=== PATIENT | male | born 1970 | race Caucasian/White ===

== ENCOUNTER 2021-02-04 21:43 | Inpatient (IN) | payer OTHER, MEDICAID, SELFPAY ==
[~2021-02-04] VITALS: Ht 180.3 cm; Wt 74.8 kg
[2021-02-04 22:07] VITALS: BP_SYST 100
--- NOTE | 2021-02-04 23:36 | NUR ---
Patient ambulatory to bed 6 for evauation
--- NOTE | 2021-02-05 | NUR ---
Patient stated that he hit his head on the bathroom tub and stated pain is 8/10.
--- NOTE | 2021-02-05 00:05 | NUR ---
MD sainz in to see patient
[2021-02-05 01:24] LABS: ANION GAP 10 (5-15); CALCIUM 9.5 mg/dL (8.4-11.0); CHLORIDE 101 mmol/L (98-107); GLUCOSE 101 mg/dL (70-99); POTASSIUM 3.7 mmol/L (3.5-5.1); SODIUM SERUM 136 mmol/L (136-145); UREA NITROGEN, BLOOD 10 mg/dL (8-21)
[2021-02-05 01:30] LABS: ALANINE AMINOTRANSFERASE 24 U/L (12-78); ALBUMIN 4.3 g/dL (3.4-4.8); ASPARTATE AMINOTRANSFERASE 16 U/L (10-37); TOTAL BILIRUBIN 0.5 mg/dL (0.0-1.0)
[2021-02-05 01:37] LABS: GFR AFRICAN AMERICAN 92 mL/min (>90)
[2021-02-05 01:38] LABS: ALCOHOL, BLOOD < 3 mg/dL (<10)
[2021-02-05 01:47] LABS: HEMATOCRIT 41.5 % (36-54); HEMOGLOBIN 13.8 g/dL (14.0-18.0); MEAN CORPUSCULAR HEMOGLOBIN 29 pg (27-31); MEAN CORPUSCULAR HGB CONC 33 % (32-36); MEAN CORPUSCULAR VOLUME 86 fL (79.0-98.0); PLATELET COUNT (AUTO) 251 K/uL (130-430); RED BLOOD CELL COUNT(AUTO) 4.82 MIL/uL (4.2-6.2); RED CELL DISTRIBUTION WIDTH 12.8 % (9.0-15.0)
[2021-02-05 01:48] LABS: LYMPHOCYTES % (AUTO) 36.2 % (20.5-51.5); NEUTROPHILS % (AUTO) 56.7 % (40.0-70.0)
[2021-02-05 04:26] LABS: BILIRUBIN,URINE NEGATIVE (NEGATIVE); BLOOD, URINE NEGATIVE (NEGATIVE); CLARITY/URINE CLEAR (CLEAR); GLUCOSE,URINE NEGATIVE (NEGATIVE); KETONES,URINE NEGATIVE (NEGATIVE); LEUKOCYTE ESTERASE ,URINE NEGATIVE (NEGATIVE); NITRITE, URINE NEGATIVE (NEGATIVE); PROTEIN URINE NEGATIVE (NEGATIVE); UROBILINOGEN,URINE 0.2 (0.2-1.0)
[2021-02-05 05:01] LABS: BARBITURATE, URINE NEGATIVE (NEG <=200); URINE AMPHETAMINE NEGATIVE (NEG <=500)
[2021-02-05 05:02] LABS: BENZODIAZEPINE, URINE NEGATIVE (NEG <=150); CANNABINOID, URINE POSITIVE (NEG <=50); COCAINE, URINE NEGATIVE (NEG <=150); METHAMPHETAMINES SCREEN,URINE NEGATIVE (NEG <=500); URINE METHADONE NEGATIVE (NEG <=200)
[2021-02-05 05:03] LABS: OPIATE, URINE POSITIVE (NEG <=100); PHENCYCLIDINE SCREEN,URINE NEGATIVE (NEG <=25); URINE OXYCODONE SCREEN POSITIVE (NEG <=100); URINE PROPOXYPHENE SCREEN NEGATIVE (NEG <=300)
[2021-02-05 05:04] LABS: UR TRICYCLIC ANTIDEPRESSANTS POSITIVE (NEG <=300)
[2021-02-05 05:16] LABS: COLOR,URINE YELLOW (YELLOW)
[2021-02-05] MEDS ORDERED: VORT20TA PO (05:50)
[2021-02-05] MEDS ORDERED: SOM350 PO (05:50)
[2021-02-05] MEDS ORDERED: LITH300C2 PO (05:50)
[2021-02-05] MEDS ORDERED: LAMO150T2 PO (05:50)
[2021-02-05] MEDS ORDERED: BICT1TAB PO (05:50)
[2021-02-05] MEDS ORDERED: CALC200T47 PO (05:50)
[2021-02-05] MEDS ORDERED: VITD2000 PO (05:50)
[2021-02-05] MEDS ORDERED: ONDA4TAB5 PO (05:50)
[2021-02-05] MEDS ORDERED: FINA1TAB PO (05:50)
[2021-02-05] MEDS ORDERED: GABA600T PO (05:50)
[2021-02-05] MEDS ORDERED: MELO15TA13 PO (05:50)
[2021-02-05] MEDS ORDERED: TAMS-11 PO (05:50)
[2021-02-05] MEDS ORDERED: HYDR-3927 PO (05:50)
[2021-02-05] MEDS ORDERED: MORP30TA PO (05:50)
[2021-02-05] MEDS ORDERED: QUET300T5 PO (05:50)
--- NOTE | 2021-02-05 05:50 | NUR ---
Medication reconciliation completed with information provided by PATIENT. Any prior medication reconciliation on file was reviewed and corrected.
--- NOTE | 2021-02-05 07:40 | NUR ---
calm, alert, resp unlabored, skin warm and dry. communicates clearly in full complete senteces, skin warm and dry. Denies cp/sob. vss, sr on monitor no ectopy
--- NOTE | 2021-02-05 08:57 | NUR ---
Patient will be admitted to care [facility]. Admitted to TELE unit. Will go to room 108 . Belongings list completed. Complete and up to date summary report printed. SBAR report to be given at bedside with opportunity for questions.
[2021-02-05 09:53] VITALS: BP_SYST 123
--- NOTE | 2021-02-05 10:17 | NUR ---
ALERT, ORIENTED, AWAKE, AMBULATORY. " FELL LAST NIGHT IN MY BATH TUB, AFTER TAKING MY NORCO FOR BACK PAIN, ALONG WITH MY ROUTINE MEDS ( FLOMAX) APPROPRIATE ON ARRIVAL, ONLY COMPLAINT " HUNGRY, REGULAR DIET OFFERED, NOW AWAITING ADMISSION ORDERS
[2021-02-05 12:00] VITALS: BP_SYST 118
[2021-02-05] MEDS: GABAPENTIN 300 MG CAPSULE PO SCH ×3 (12:14→21:31)
[2021-02-05] MEDS: LITHIUM CARBONATE 300 MG TABLET.SA PO SCH ×2 (14:42→21:31)
[2021-02-05] MEDS: MORPHINE SULFATE 30 MG Immediate Release TABLET PO SCH ×2 (14:42→21:32)
[2021-02-05 16:32] VITALS: BP_SYST 124
--- NOTE | 2021-02-05 17:19 | NUR ---
seen by attending, all po meds ( Protivin , morphine immediate release, and neurontin given. appeared coherent, no complaint of any discomfort. per farmacy, HIV meds, - Biktarvy, and brintelix, and Seroquel XL , non-formulary). requests the patient to bring them from home, if possible.
--- NOTE | 2021-02-05 19:20 | NUR ---
CHANGE OF SHIFT;e endorsed by day shift, no acute distress. call ligth within reach.
--- NOTE | 2021-02-05 20:00 | NUR ---
NOTES: pt. awake, watching tv when checked. denies any discomfort at this time. IVF infusing on rt. hand. on room air. call light within reach. on front desk monitor and shows sinus rhythm.
[2021-02-05 20:45] VITALS: BP_SYST 103
[2021-02-05] MEDS: ONDANSETRON 4 MG ODT TAB PO SCH (21:30)
--- NOTE | 2021-02-05 21:30 | NUR ---
NOTES: schedule medication given including pain medication. repositioned self for comfort.
[2021-02-05] MEDS: LamoTRIgine 100 MG TABLET PO SCH (21:31)
[2021-02-05] MEDS: TAMSULOSIN HCL 0.4 MG CAP PO SCH (21:31)
--- NOTE | 2021-02-06 00:15 | NUR ---
NOTES: pt. sleeping when checked, noted relief from pain.
[2021-02-06 00:30] VITALS: BP_SYST 108
--- NOTE | 2021-02-06 03:30 | NUR ---
NOTES: condition observed, continue to monitor.
--- NOTE | 2021-02-06 06:47 | NUR ---
CLOSING NOTES; pt. beeen sleeping all night. no distress. IV lock patent. for further care and assistance. call light within reach.
[2021-02-06 08:51] LABS: CALCIUM 9.6 mg/dL (8.4-11.0); CREATININE 1.17 mg/dL (0.55-1.30); POTASSIUM 4.4 mmol/L (3.5-5.1)
[2021-02-06 08:57] VITALS: BP_SYST 95
[2021-02-06] MEDS ORDERED: QUETIAPINE FUMARATE 300 MG PO SCH (09:00)
[2021-02-06] MEDS ORDERED: VORTIOXETINE HYDROBROMIDE 40 MG PO SCH (09:00)
[2021-02-06] MEDS ORDERED: CHOLECALCIFEROL (VITAMIN D3) 2,000 UNIT TABLET PO SCH (09:00)
[2021-02-06] MEDS ORDERED: MELOXICAM 7.5 MG TABLET PO SCH (09:00)
[2021-02-06] MEDS ORDERED: CALCIUM 500 MG/TAB PO SCH (09:00)
[2021-02-06] MEDS ORDERED: FINASTERIDE 5 MG TABLET (PROSCAR) PO SCH (09:00)
[2021-02-06] MEDS: LITHIUM CARBONATE 300 MG TABLET.SA PO SCH ×2 (09:07→15:53)
[2021-02-06] MEDS: ONDANSETRON 4 MG ODT TAB PO SCH (09:07)
[2021-02-06] MEDS: TAMSULOSIN HCL 0.4 MG CAP PO SCH (09:07)
[2021-02-06] MEDS: LamoTRIgine 100 MG TABLET PO SCH (09:08)
[2021-02-06] MEDS: GABAPENTIN 300 MG CAPSULE PO SCH ×3 (09:08→17:09)
[2021-02-06] MEDS: MORPHINE SULFATE 30 MG Immediate Release TABLET PO SCH ×2 (09:09→15:54)
[2021-02-06 12:38] VITALS: BP_SYST 101
[2021-02-06] MEDS ORDERED: QUETIAPINE FUMARATE 300 MG PO ONE (15:15)
[2021-02-06] MEDS ORDERED: [UNRECOGNIZED DRUG - OTHER] PO ONE (15:15)
[2021-02-06] MEDS ORDERED: TRINTELLIX 20 MG TABLET PO ONE (15:15)
[2021-02-06 16:00] VITALS: BP_SYST 107
--- NOTE | 2021-02-06 16:00 | NUR ---
disposition 01
[2021-02-06 17:51] VITALS: BP_SYST 107
--- NOTE | 2021-02-06 18:10 | NUR ---
NOTES LATE ENTRY DUE TO PATIENT CARE 0730- ASSUMED CARE OF THE PATIENT. IN BED, OPEN EYES SPONTANEOUSLY. DOES NOT APPEAR TO BE IN DISTRESS. PLAN OF CARE DISCUSSED WITH PATIENT. PATIENT VERBALIZED UNDERSTANDING 1200- EDUCATED PATIENT ON DISEASE MANAGEMENT AND MEDICATION. PT VERBALIZED UNDERSTANDING. NO NEW PROBLEM 1700- SEEN BY DR JASMINE. CLEARED BY MD TO BE DISCHARGE. UNABLE TO COMPLETE DISCHARGE INSTRUCTION MD LEFT THE BUILDING WITHOUT LOGGING OUT OF PATIENT PROFILE.
[2021-02-07] MEDS ORDERED: [UNRECOGNIZED DRUG - OTHER] PO SCH (09:00)
[2021-02-07] MEDS ORDERED: QUETIAPINE FUMARATE 300 MG PO SCH (09:00)
[2021-02-07] MEDS ORDERED: TRINTELLIX 20 MG TABLET PO SCH (09:00)
== END 2021-02-06 20:19 | disposition home or self-care (01) | DRG 92 ==
LOC: SED 21:43 → STU 02-05 05:38
PROVIDERS: ADMIT Family Medicine; ATTEND Family Medicine
DX: G92.8 Other toxic encephalopathy (principal); N17.9 Acute kidney failure, unspecified; G89.29 Other chronic pain; F31.9 Bipolar disorder, unspecified; Z20.822 Contact with and (suspected) exposure to COVID-19; E86.0 Dehydration; I10 Essential (primary) hypertension; N40.0 Benign prostatic hyperplasia without lower urinary tract symptoms; M54.9 Dorsalgia, unspecified; W18.2XXA Fall in (into) shower or empty bathtub, initial encounter; T40.2X5A Adverse effect of other opioids, initial encounter; R51.9 Headache, unspecified; Y93.89 Activity, other specified; Y92.091 Bathroom in other non-institutional residence as the place of occurrence of the external cause; Y99.8 Other external cause status; Z79.899 Other long term (current) drug therapy
CPT/HCPCS: 36415; 70450-TC; 76376; 80048; 80053; 80307; 81003; 82550; 84484; 85025; 93005; 99285; G0378; G0482; J2274; Q0162